=== PATIENT | female | born 1970 | race Caucasian/White ===

== ENCOUNTER 2021-04-16 21:45 | Inpatient (IN) | payer BC, SELFPAY ==
[2021-04-16 21:46] VITALS: BP 148/50; PULSE 86; RESP 17; TEMP 37.1; O2SAT 99; BMI 24.7
[2021-04-16 23:30] VITALS: BP 146/72; PULSE 87; O2SAT 98
--- NOTE | 2021-04-16 23:49 | HMH.EDNVD ---
ED Disposition Clinical Impression: Tobacco use Pancreatitis Qualifiers: Chronicity: acute Pancreatitis type: unspecified pancreatitis type Acute pancreatitis complication: no infection or necrosis Qualified Code(s): K85.90 - Acute pancreatitis without necrosis or infection, unspecified Diabetes mellitus Qualifiers: Diabetes mellitus type: type 1 Diabetes mellitus complication status: with other specified complication Qualified Code(s): E10.69 - Type 1 diabetes mellitus with other specified complication Disposition: Admitted As Inpatient Condition on Discharge: Good Instructions: DI for Acute Abdominal Pain Referrals: Provider,Referral, [Primary Care Provider] - - Critical Care Critical Care Time: No Attestation: On 04/16/21, the high probability of a clinically significant, sudden or life threatening deterioration of the following system(s) required my full and direct attention, intervention and personal management. The time I documented below is in addition to time spent performing reported procedures but includes the following listed in this critical care notation. Medical Decision Making - Medical Records Medical records reviewed: Yes: I reviewed the patient's medical records. - Carlos Inquiry Pt receiving controlled substance: No Vital Signs: 04/16/21 21:46 04/16/21 23:30 Temperature 98.8 F Temperature Source Oral Pulse Rate 87 Pulse Rate [Right] 86 Respiratory Rate 17 Blood Pressure 146/72 H Blood Pressure [Right Arm] 148/50 H Blood Pressure Mean [Right Arm] 82 Blood Pressure Source [Right Arm] Automatic Cuff 02 Sat by Pulse Oximetry 99 98 Oxygen Delivery Method Room Air - Lab Data Lab results reviewed: Yes: I reviewed the patient's lab results. Lab Results 04/16/21 23:30: WBC 18.9 H, RBC 4.10 L, Hgb 12.6, Hct 38.3, MCV 93.2, MCH 30.7, MCHC 32.9, RDW 13.2, Plt Count 147, MPV 10.8 H, Neut % (Auto) 85.1 H, Lymph % (Auto) 10.2, [place] % (Auto) 4.5, Eos % (Auto) 0.1, Baso % (Auto) 0.1, Neut # (Auto) 16.0 H, Lymph # (Auto) 1.9, [place] # (Auto) 0.9, Eos # (Auto) 0.0, Baso # (Auto) 0.0, Total Counted 100, Neutrophils % (Manual) 76, Band Neutrophils % 6.0, Lymphocytes % (Manual) 11, Monocytes % (Manual) 7, Platelet Estimate Normal, RBC Morphology Normal 04/16/21 23:30: Sodium 131 L, Potassium 5.0, Chloride 90 L, Carbon Dioxide 27, Anion Gap 19.0 H, BUN 23 H, Creatinine 0.90, Estimated Creat Clear 71, Estimated GFR 66, Est GFR ( Amer) 80, Glucose 326 H, Calcium 9.7, Total Bilirubin 0.4, AST 25, ALT 21, Alkaline Phosphatase 162 H, Troponin I < 0.01, Total Protein 8.9 H, Albumin 4.6, Globulin 4.3 H, Albumin/Globulin Ratio 1.1, Amylase 185 H, Acetone Level None detected 04/16/21 23:30: C-Reactive Protein 340.9 H, Lipase 1235 H 04/16/21 23:30: ESR 62 H 04/16/21 23:30: Lactate 1.2 04/16/21 23:30: Procalcitonin 0.459 04/16/21 23:30: SARS-CoV-2 (PCR) Not detected, Influenza A Untype (PCR) Not detected, Influenza Type B (PCR) Not detected 04/17/21 01:04: Urine Color Yellow, Urine Appearance Clear, Urine pH 6.0, Ur Specific [place] 1.020, Urine Protein Trace, Urine Glucose (UA) 2+, Urine Ketones 1+, Urine Blood Trace-i, Urine Nitrate Negative, Urine Bilirubin Negative, Urine Urobilinogen 0.2, Ur Leukocyte Esterase Negative, Urine RBC Occasional, Amorphous Sediment Trace Result diagrams: 04/16/21 23:30 04/16/21 23:30 Orders (Tests/Meds): ED MEDICATIONS Generic Name Dose Route Start Last Admin Trade Name Freq PRN Reason Stop Dose Admin Sodium Chloride 1,000 mls @ 999 mls/hr 04/16/21 23:45 04/16/21 23:57 Sod Chlor 0.9% 1000ml Bag IV 04/17/21 00:45 999 mls/hr .Q1H1M BO Administration Discontinued Medications Generic Name Dose Route Start Last Admin Trade Name Freq PRN Reason Stop Dose Admin Iopamidol 75 ml 04/17/21 00:47 04/17/21 00:48 Iopamidol-370 (76%);100ml Bottle IV 04/17/21 00:48 75 ml ONCE ONE Administration Ondansetron HCl 4 mg 04/16/21 23:54 04/16/21 23
[2021-04-17] VITALS: BP 129/67; PULSE 83; O2SAT 97
[2021-04-17 00:03] LABS: Chloride 90 mmol/L (98-107); Sodium 131 mmol/L (136-145)
[2021-04-17 00:05] LABS: Basophils % 0.1 % (0.1-2.0); Eosinophils % 0.1 % (0.1-12.0); Hematocrit 38.3 % (37.0-47.0); Hemoglobin 12.6 g/dL (12.2-16.2); Lymphocytes # 1.9 K/mm3 (0.7-4.5); Lymphocytes % 10.2 % (10-50); Mean Corpuscular HGB Conc 32.9 g/dL (31.8-35.4); Mean Corpuscular Hemoglobin 30.7 pg (27.0-31.2); Mean Corpuscular Volume 93.2 fl (81-99); Mean Platelet Volume 10.8 fl (7.4-10.4); Monocytes # 0.9 K/mm3 (0.1-1.0); Monocytes % 4.5 % (1.7-9.3); Neutrophils % 85.1 % (37.0-80.0); Platelet Count 147 K/mm3 (142-424); Red Cell Distribution Width 13.2 % (11.5-17.5); White Blood Count 18.9 K/mm3 (4.8-10.8)
[2021-04-17 00:06] LABS: Alanine Aminotransferase 21 U/L (12-78); Albumin Level 4.6 g/dl (3.5-5.0); Albumin/Globulin Ratio 1.1 (1.1-1.8); Alkaline Phosphatase 162 U/L (38-126); Amylase 185 U/L (30-110); Aspartate Amino Transferase 25 U/L (14-36); Bilirubin,Total 0.4 mg/dl (0.2-1.3); Blood Urea Nitrogen 23 mg/dl (7-17); Calcium 9.7 mg/dl (8.4-10.2); Carbon Dioxide 27 mmol/L (22.0-30.0); Creatinine Clearance Estimated 71 mL/min (50-200); Estimated Glomerular Filt Rate 66 ml/min (>60); GFR (African American) 80 ML/MIN (>60); Globulin 4.3 g/dL (1.3-3.2); Glucose 326 mg/dl (74-100); Total Protein,Serum 8.9 g/dl (6.3-8.2)
[2021-04-17 00:07] LABS: Lactic Acid 1.2 mmol/L (0.7-2.1); MANUAL DIFFERENTIAL MANUAL DIFFERENTIAL (MANUAL DIFF)
[2021-04-17 00:13] LABS: Lipase 1235 U/L (23-300)
--- NOTE | 2021-04-17 00:13 | CT_ITS ---
PROCEDURE INFORMATION: Exam: CT Abdomen And Pelvis With Contrast Exam date and time: 04/17/2021 12:13 AM Age: 50 years old Clinical indication: Abdominal pain; Localized; Right lower quadrant (rlq); Prior surgery; Surgery date: 6+ months; Surgery type: Gb hysterectomy; Additional info: Abd pain with nausea rlq pain TECHNIQUE: Imaging protocol: Computed tomography of the abdomen and pelvis with contrast. Total images: 286 Radiation optimization: All CT scans at this facility use at least one of these dose optimization techniques: automated exposure control; mA and/or kV adjustment per patient size (includes targeted exams where dose is matched to clinical indication); or iterative reconstruction. Contrast material: ISOVUE; Contrast volume: 75 ml; Contrast route: IV; COMPARISON: No relevant prior studies available. FINDINGS: Lungs: Mild bibasilar mosaic attenuation of the pulmonary parenchyma, suggesting mild small airway infectious/inflammatory process. There is subsegmental bibasilar atelectasis. Mediastinal space: A small sliding hiatal hernia is present. Liver: Suspect hepatic steatosis. Gallbladder and bile ducts: Prior cholecystectomy noted. Pancreas: Inflammation of the pancreatic tail suggests pancreatitis and is associated with a 3.6 x 3.5 x 2.9 cm rind of inflammatory fluid at the pancreatic tail. Along the anterior cranial aspect of the pancreatic tail, a more well matured 2.6 x 2.6 x 2.7 cm pseudocyst is suspected. This does appear to have an intrapancreatic extension, presumably related to prior pancreatitis though continued attention on follow-up examination is recommended. Spleen: Normal. No splenomegaly. Adrenal glands: Right adrenalectomy. Unremarkable left adrenal. Kidneys and ureters: Normal. No hydronephrosis. Stomach and bowel: Unremarkable. No obstruction. No mucosal thickening. Intestine: Findings of moderate infectious or inflammatory gastritis that could be secondary to adjacent pancreatitis. Appendix: Normal appendix. Intraperitoneal space: Unremarkable. No free air. No significant fluid collection. Vasculature: Atherosclerosis is evident. Lymph nodes: Prominent pre cardiac lymph node is nonspecific. Nonspecific prominent upper abdominal lymph nodes. Urinary bladder: Unremarkable as visualized. Reproductive: Unremarkable as visualized. Bones/joints: Unremarkable. No acute fracture. Soft tissues: Unremarkable. Other findings: Incidental pelvic phlebolith formation. IMPRESSION: 1. Inflammation of the pancreatic tail suggests pancreatitis and is associated with a 3.6 x 3.5 x 2.9 cm rind of inflammatory fluid at the pancreatic tail. Along the anterior cranial aspect of the pancreatic tail, a more well matured 2.6 x 2.6 x 2.7 cm pseudocyst is suspected. This does appear to have an intrapancreatic extension, presumably related to prior pancreatitis though continued attention on follow-up examination is recommended. No convincing abscess. Recommend correlation with amylase/lipase. 2. Normal appendix. 3. Findings of moderate infectious or inflammatory gastritis that could be secondary to adjacent pancreatitis. No perforation. 4. Mild bibasilar mosaic attenuation of the pulmonary parenchyma, suggesting mild small airway infectious/inflammatory process.
[2021-04-17 00:19] LABS: Coronavirus 19, PCR Not Detected (NotDetected); Influenza A, PCR Not Detected (NotDetected); Influenza B, PCR Not Detected (NotDetected)
[2021-04-17 00:21] LABS: Lymphocytes % 11 % (10-50); Monocytes % 7 % (2-9); Neutrophils % 76 % (42-76); Platelet Estimate Normal; RBC Morphology Normal; Total Cells Counted 100
[2021-04-17 00:22] LABS: Troponin I < 0.01 ng/ml (0.00-0.034)
[2021-04-17 00:23] LABS: Acetone, Serum (Rapid) None Detected (None Detect); Procalcitonin 0.459 ng/mL (0.0-2.0)
[2021-04-17 00:26] LABS: C-Reactive Protein 340.9 mg/L (0-4)
[2021-04-17 00:31] LABS: Erythrocyte Sedimentation Rate 62 mm/hr (0-30)
--- NOTE | 2021-04-17 00:32 | PC.NURSE ---
pt to CT
[2021-04-17 01:16] LABS: Microscopic, Urine URINE MICROSCOPIC (MICROSCOPIC)
[2021-04-17 01:22] LABS: Appearance,Urine CLEAR (Clear); Bilirubin,Urine Negative (Negative); Blood, Urine TRACE-I (Negative); Color,Urine YELLOW (Yellow); Glucose,Urine (UA) 2+ (Negative); Ketones,Urine 1+ (Negative); Leukocyte Esterase,Urine Negative (Negative); Nitrate,Urine Negative (Negative); Protein,Urine TRACE (Negative); Urobilinogen,Urine 0.2 EU/dl (0.2)
[2021-04-17 01:25] LABS: Amorphous Sediment,Urine Trace /lpf; RBC,Urine Occasional #/hpf (0-3)
[2021-04-17 02:03] VITALS: BMI 22.8
--- NOTE | 2021-04-17 03:59 | PC.NURSE ---
patient up to floor via wheelchair.
[2021-04-17 04:00] VITALS: BP 117/72; BP 132/70; PULSE 75; PULSE 85; RESP 16; RESP 17; TEMP 36.8; TEMP 36.9; O2SAT 96; O2SAT 99
[2021-04-17 05:41] LABS: POC Glucose,Bedside 261 (70-110)
[2021-04-17 07:09] LABS: Basophils % 0.2 % (0.1-2.0); Eosinophils % 0.2 % (0.1-12.0); Hematocrit 32.5 % (37.0-47.0); Lymphocytes # 1.6 K/mm3 (0.7-4.5); Lymphocytes % 12.1 % (10-50); Mean Corpuscular HGB Conc 32.1 g/dL (31.8-35.4); Mean Corpuscular Hemoglobin 30.3 pg (27.0-31.2); Mean Corpuscular Volume 94.3 fl (81-99); Mean Platelet Volume 10.6 fl (7.4-10.4); Monocytes # 0.7 K/mm3 (0.1-1.0); Monocytes % 4.9 % (1.7-9.3); Neutrophils # 11.2 K/mm3 (1.8-7.8); Neutrophils % 82.6 % (37.0-80.0); Platelet Count 110 K/mm3 (142-424); Red Blood Count 3.45 M/mm3 (4.20-5.40); Red Cell Distribution Width 13.1 % (11.5-17.5); White Blood Count 13.6 K/mm3 (4.8-10.8)
[2021-04-17 07:19] LABS: Anion Gap 12.2 mEq/L (5-15); Blood Urea Nitrogen 20 mg/dl (7-17); Calcium 8.7 mg/dl (8.4-10.2); Carbon Dioxide 27 mmol/L (22.0-30.0); Chloride 97 mmol/L (98-107); Chol/HDL Ratio 4.1 (1-3.5); Cholesterol 141 mg/dl (140-200); Creatinine Clearance Estimated 83 mL/min (50-200); Estimated Glomerular Filt Rate 88 ml/min (>60); GFR (African American) 106 ML/MIN (>60); Glucose 236 mg/dl (74-100); HDL Cholesterol 34 mg/dl (40-60); Magnesium 1.9 mg/dl (1.6-2.3); Potassium 5.2 mmoL/L (3.5-5.1); Sodium 131 mmol/L (136-145); Triglycerides 155 mg/dl (30-150); VLDL Cholesterol 31 mg/dL (0-40)
[2021-04-17 07:30] LABS: Direct LDL Cholesterol 53.37 mg/dL (100-129)
[2021-04-17 07:40] LABS: Lipase 693 U/L (23-300)
[2021-04-17 07:45] LABS: Hemoglobin 10.5 g/dL (12.2-16.2)
--- NOTE | 2021-04-17 07:55 | HMH.PHAVTE ---
[facility] Pharmacy VTE Monitoring - Patient Demographics Admission date: 04/16/21 Report Date: 04/17/21 Time: 07:55 Allergies/Adverse Reactions: Patient Allergies codeine Allergy (Verified 04/17/21 04:47) metformin Allergy (Verified 04/17/21 04:47) Height: 1.57 m Weight: 56.245 kg Patient Problems: Current Active Problems Pancreatitis (Acute) Tobacco use (Acute) Diabetes mellitus (Acute) - VTE Risk Labs: VTE Related Lab Results Hgb 10.5 g/dL (12.2-16.2) L D 04/17/21 06:55 Hct 32.5 % (37.0-47.0) L 04/17/21 06:55 Plt Count 110 K/mm3 (142-424) L D 04/17/21 06:55 BUN 20 mg/dl (7-17) H 04/17/21 06:55 Creatinine 0.70 mg/dl (0.52-1.04) D 04/17/21 06:55 Estimated Creat Clear 83 mL/min (50-200) 04/17/21 06:55 Was VTE Risk Assessment Performed: Yes VTE Score: 3 VTE Risk Level: Low Risk - Prophylaxis VTE Prophylaxis Ordered?: Yes Types of VTE Prophylaxis: TEDS Knee High Location of Applied Device: Bilateral Lower Extremeties
[2021-04-17 08:00] VITALS: BP 117/53; PULSE 81; RESP 16; TEMP 36.8; O2SAT 97
--- NOTE | 2021-04-17 08:00 | XR_ITS ---
PROCEDURE INFORMATION: Exam: XR Chest Exam date and time: 04/17/2021 8:00 AM Age: 50 years old Clinical indication: Pain; On breathing; Additional info: Chest pain TECHNIQUE: Imaging protocol: XR of the chest. Views: 2 views. COMPARISON: CT ABDOMEN PELVIS W CON 04/17/2021 12:38 AM FINDINGS: Lungs: Limited inspiration. No consolidation. Pulmonary vascular markings do not appear congested. Pleural spaces: Unremarkable. No pleural effusion. No pneumothorax. Heart/Mediastinum: Unremarkable. No cardiomegaly. Bones/joints: Unremarkable. Organs: There are multiple clips identified within the right upper quadrant, compatible prior cholecystectomy. Clips are also identified within the right paraspinal region, related to known prior right adrenalectomy. IMPRESSION: No acute findings.
--- NOTE | 2021-04-17 10:38 | HMH.HP ---
*Admission Date: 04/16/21 *Chief complaint: abd pain *History of present illness: this pt presented to the ed with abd pain which has been progressive over the last 24 hrs with dec po intake with nausea and vomiting - no fever - no blood in vomitus and no melena - no etoh - pt with abn ct of abd/pelvis which showed acute pancreatitis and prob pseudocyst - pt admitted for ivf and surg eval and treatment [facility] History I have reviewed the patient's past medical history: Yes Medical History: Reports:: Diabetes Mellitus Type 2 Denies:: Cancer, Diabetes Mellitus Type 1, MRSA *Have you ever received a pneumonia vaccine?: No *Have you received a flu vaccine this season?: No Other Medical History: Reports: Arthritis, Fibromyalgia Other Surgeries: Yes: Cholecystectomy, Hysterectomy-Total Amputation: No Fractures: Yes (R arm fracture) - *Social History Smoking Status: Current every day smoker Tobacco Type: cigarettes # Packs/Day (cigarettes): 1 Alcohol Intake: never *Occupational Status:: employed *Travel in the last 8 weeks: None Family Hx:: Anemia, Cancer, Coronary Artery Disease, Diabetes, Heart Attack, Hyperlipidemia, Hypertension, Stroke, Alcoholism Review of Systems - Review of Systems Review of systems:: pertinent systems reviewed and negative unless documented below - Constitutional Denies fever(s) - Eyes Denies blurry vision - ENT Denies dizziness - *Cardiovascular Denies chest pain - *Respiratory Denies cough - *Gastrointestinal Reports abdominal pain, Reports nausea, Reports vomiting, Denies vomiting blood, Denies black, tarry stools - *Genitourinary Denies pelvic pain - *Musculoskeletal Denies joint pain - Integumentary/Breasts Denies rash - *Neurologic Denies localized weakness, Denies seizure-like activity - Psychiatric Denies anxiety Meds Home Medications Medication Instructions Recorded Confirmed Type Atorvastatin Calcium [Lipitor 40mg 40 mg PO HS 04/17/21 04/17/21 History Tab] Ergocalciferol (Vitamin D2) 50,000 units PO WEEKLY 04/17/21 04/17/21 History [Drisdol 50,000 units (1.25mg) capsule] Escitalopram Oxalate [Lexapro] 10 mg PO DAILY 04/17/21 04/17/21 History Insulin Glargine,Hum.rec.anlog 15 units SQ DAILY 04/17/21 04/17/21 History [Torahul Duarte] Insulin Lispro [HumaLOG 100 See Protocol SQ ACHS 04/17/21 04/17/21 History units/mL 3mL vial (SSI)] Allergies Allergy/AdvReac Type Severity Reaction Status Date / Time codeine Allergy Verified 04/17/21 04:47 metformin Allergy Verified 04/17/21 04:47 Exam Vital signs and Labs for Last 24 Hours: Temp Pulse Resp BP Pulse Ox 98.3 F 81 16 117/53 L 97 04/17/21 08:00 04/17/21 08:00 04/17/21 08:00 04/17/21 08:00 04/17/21 08:00 Laboratory Results - last 24 hr 04/16/21 23:30: WBC 18.9 H, RBC 4.10 L, Hgb 12.6, Hct 38.3, MCV 93.2, MCH 30.7, MCHC 32.9, RDW 13.2, Plt Count 147, MPV 10.8 H, Neut % (Auto) 85.1 H, Lymph % (Auto) 10.2, [place] % (Auto) 4.5, Eos % (Auto) 0.1, Baso % (Auto) 0.1, Neut # (Auto) 16.0 H, Lymph # (Auto) 1.9, [place] # (Auto) 0.9, Eos # (Auto) 0.0, Baso # (Auto) 0.0, Total Counted 100, Neutrophils % (Manual) 76, Band Neutrophils % 6.0, Lymphocytes % (Manual) 11, Monocytes % (Manual) 7, Platelet Estimate Normal, RBC Morphology Normal 04/16/21 23:30: Sodium 131 L, Potassium 5.0, Chloride 90 L, Carbon Dioxide 27, Anion Gap 19.0 H, BUN 23 H, Creatinine 0.90, Estimated Creat Clear 71, Estimated GFR 66, Est GFR ( Amer) 80, Glucose 326 H, Calcium 9.7, Total Bilirubin 0.4, AST 25, ALT 21, Alkaline Phosphatase 162 H, Troponin I < 0.01, Total Protein 8.9 H, Albumin 4.6, Globulin 4.3 H, Albumin/Globulin Ratio 1.1, Amylase 185 H, Acetone Level None detected 04/16/21 23:30: C-Reactive Protein 340.9 H, Lipase 1235 H 04/16/21 23:30: ESR 62 H 04/16/21 23:30: Lactate 1.2 04/16/21 23:30: Procalcitonin 0.459 04/16/21 23:30: SARS-CoV-2 (PCR) Not detected, Influenza A Untype (PCR) Not detected, In
[2021-04-17 11:21] LABS: POC Glucose,Bedside 235 (70-110)
--- NOTE | 2021-04-17 15:45 | HMH.PHAINT ---
MEDICATION RECONCILIATION COMPLETED ON PATIENT USING EXTERNAL FILL HISTORY FROM PHARMACY AND [place] REPORT. -LUIS A JUAREZD
[2021-04-17 15:47] VITALS: BP 132/73; PULSE 83; RESP 16; TEMP 36.8; O2SAT 96
[2021-04-17 16:21] LABS: POC Glucose,Bedside 291 (70-110)
--- NOTE | 2021-04-17 17:03 | PC.NURSE ---
Pt has been pleasant and cooperative this shift. A&O X4. Pt has had frequent complaints of pain and has been medicated with Dilaudid per MAR. Pt is on room air with sats. >90%. Lungs CTA. No edema noted. Skin is C/D/I. Pt ambulates independently to/from the bathroom and throughout the room. Pt has also sat up in the recliner for a few hours today. Urine is clear and yellow. No BM thus far this shift. Pt is tolerating a clear liquid diet fairly at this time. FSBS results have been 235 and 291. 18 G peripheral IV in the RT AC is patent and infusing NS @ 100 ML/HR. VSS. Call light within reach. Will continue to monitor.
[2021-04-17 20:00] VITALS: BP 132/67; PULSE 87; RESP 18; TEMP 37.2; O2SAT 97
[2021-04-17 21:01] LABS: POC Glucose,Bedside 249 (70-110)
--- NOTE | 2021-04-18 03:37 | PC.NURSE ---
Shift summary. Pt has had multiple c/o pain in abdomen t/o shift rating pain as 10/10 and nausea. Pt was administered Dilaudid and Zofran per SEP. Pt has not rested t/o shift thus far. Tolerating RA well with sats above 96%. NS infusing @100ml/hr. Pt able to ambulate to bathroom independently. Pt currently sitting up in bed watching tv. CB in reach. Will continue to monitor.
[2021-04-18 04:00] VITALS: BP 142/71; PULSE 92; RESP 18; TEMP 36.7; O2SAT 94
[2021-04-18 06:01] LABS: POC Glucose,Bedside 242 (70-110)
[2021-04-18 07:36] VITALS: BP 151/79; PULSE 84; RESP 18; TEMP 36.9; O2SAT 93
[2021-04-18 07:55] LABS: Basophils % 0.1 % (0.1-2.0); Eosinophils % 0.1 % (0.1-12.0); Hematocrit 32.6 % (37.0-47.0); Hemoglobin 10.5 g/dL (12.2-16.2); Lymphocytes # 1.6 K/mm3 (0.7-4.5); Mean Corpuscular HGB Conc 32.1 g/dL (31.8-35.4); Mean Corpuscular Hemoglobin 30.3 pg (27.0-31.2); Mean Corpuscular Volume 94.2 fl (81-99); Mean Platelet Volume 10.9 fl (7.4-10.4); Monocytes # 0.6 K/mm3 (0.1-1.0); Monocytes % 5.1 % (1.7-9.3); Neutrophils # 10.2 K/mm3 (1.8-7.8); Neutrophils % 81.6 % (37.0-80.0); Platelet Count 105 K/mm3 (142-424); Red Blood Count 3.46 M/mm3 (4.20-5.40); White Blood Count 12.5 K/mm3 (4.8-10.8)
[2021-04-18 08:04] LABS: Amylase 135 U/L (30-110); Anion Gap 15.7 mEq/L (5-15); Blood Urea Nitrogen 9 mg/dl (7-17); Calcium 9.2 mg/dl (8.4-10.2); Carbon Dioxide 25 mmol/L (22.0-30.0); Chloride 94 mmol/L (98-107); Cholesterol 156 mg/dl (140-200); Creatinine Clearance Estimated 97 mL/min (50-200); Estimated Glomerular Filt Rate 105 ml/min (>60); GFR (African American) 127 ML/MIN (>60); Glucose 223 mg/dl (74-100); HDL Cholesterol 31 mg/dl (40-60); Lipase 316 U/L (23-300); Potassium 4.7 mmoL/L (3.5-5.1); Sodium 130 mmol/L (136-145); Triglycerides 160 mg/dl (30-150); VLDL Cholesterol 32 mg/dL (0-40)
[2021-04-18 08:15] LABS: Direct LDL Cholesterol 71.32 mg/dL (100-129)
[2021-04-18 11:49] LABS: POC Glucose,Bedside 277 (70-110)
--- NOTE | 2021-04-18 14:06 | HMH.GSPN ---
Subjective Narrative: Patient is a 50-year-old female from [place], [place] recently hospitalized with apparent hypoglycemia. She was undergoing thorough work-up by endocrinology for possible insulinoma. She had endoscopic biopsy of the pancreas. She was doing well until recently she developed lower abdominal pain. This localized to the epigastrium. She presented here to the emergency department where she was seen and evaluated. She was found to have leukocytosis and elevation of pancreatic enzymes. She underwent CT scan. This revealed findings of the following: Inflammation of the pancreatic tail suggests pancreatitis and is associated with a 3.6 x 3.5 x 2.9 cm rind of inflammatory fluid at the pancreatic tail. Along the anterior cranial aspect of the pancreatic tail, a more well matured 2.6 x 2.6 x 2.7 cm pseudocyst is suspected. This does appear to have an intrapancreatic extension, presumably related to prior pancreatitis though continued attention on follow-up examination is recommended. No convincing abscess. She was seen by general surgery on-call this weekend. Of note, the patient has had prior cholecystectomy. She is on a clear liquid diet. She still does have some pain. Pancreatic enzymes have improved. Progress Note: A&P (1) Pancreatitis Status: Acute (2) Tobacco use Status: Acute (3) Diabetes mellitus Status: Acute Assessment and Plan for All Diagnoses:: No surgical intervention needed at this time. May benefit from gastroenterology input. Exam Vital signs and Labs for Last 24 Hours: Temp Pulse Resp BP Pulse Ox 98.4 F 84 18 151/79 H 93 L 04/18/21 07:36 04/18/21 07:36 04/18/21 07:36 04/18/21 07:36 04/18/21 07:36 Laboratory Results - last 24 hr 04/17/21 16:05: POC Glucose 291 H 04/17/21 20:54: POC Glucose 249 H 04/18/21 05:55: POC Glucose 242 H 04/18/21 07:14: WBC 12.5 H, RBC 3.46 L, Hgb 10.5 L, Hct 32.6 L, MCV 94.2, MCH 30.3, MCHC 32.1, RDW 13.0, Plt Count 105 L, MPV 10.9 H, Neut % (Auto) 81.6 H, Lymph % (Auto) 13.0, [place] % (Auto) 5.1, Eos % (Auto) 0.1, Baso % (Auto) 0.1, Neut # (Auto) 10.2 H, Lymph # (Auto) 1.6, [place] # (Auto) 0.6, Eos # (Auto) 0.0, Baso # (Auto) 0.0 04/18/21 07:14: Sodium 130 L, Potassium 4.7, Chloride 94 L, Carbon Dioxide 25, Anion Gap 15.7 H, BUN 9 D, Creatinine 0.60, Estimated Creat Clear 97, Estimated GFR 105, Est GFR ( Amer) 127, Glucose 223 H, Calcium 9.2, Triglycerides 160 H, Cholesterol 156, LDL Cholesterol Direct 71.32 L, VLDL Cholesterol 32, HDL Cholesterol 31 L, Cholesterol/HDL Ratio 5.0 H, Amylase 135 H, Lipase 316 H 04/18/21 11:35: POC Glucose 277 H I & O for Last 24 hours: Intake & Output 04/16/21 04/17/21 04/18/21 04/19/21 11:59 11:59 11:59 11:59 Intake Total 1999 1220 / 1220 240 / 240 Balance 1999 1220 / 1220 240 / 240 Weight 124 lb - *Routine Abdominal Exam Present: soft Comments: Tenderness in the midepigastrium without peritonitis
--- NOTE | 2021-04-18 14:43 | HMH.DCSUM ---
General - General Admission date:: 04/17/21 Discharge date: 04/18/21 HPI HPI: this pt presented to the ed with abd pain which has been progressive over the last 24 hrs with dec po intake with nausea and vomiting - no fever - no blood in vomitus and no melena - no etoh - pt with abn ct of abd/pelvis which showed acute pancreatitis and prob pseudocyst - pt admitted for ivf and surg eval and treatment Hospital Course Hospital Course: pt still with abd pain but improved and tone liquid diet - labs have improved and pt has seen surg - pt has pancreas eval in recent past and has gastro to follow up with- atient is a 50-year-old female from [place], [place] recently hospitalized with apparent hypoglycemia. She was undergoing thorough work-up by endocrinology for possible insulinoma. She had endoscopic biopsy of the pancreas. She was doing well until recently she developed lower abdominal pain. This localized to the epigastrium. She presented here to the emergency department where she was seen and evaluated. She was found to have leukocytosis and elevation of pancreatic enzymes. She underwent CT scan. This revealed findings of the following: Inflammation of the pancreatic tail suggests pancreatitis and is associated with a 3.6 x 3.5 x 2.9 cm rind of inflammatory fluid at the pancreatic tail. Along the anterior cranial aspect of the pancreatic tail, a more well matured 2.6 x 2.6 x 2.7 cm pseudocyst is suspected. This does appear to have an intrapancreatic extension, presumably related to prior pancreatitis though continued attention on follow-up examination is recommended. No convincing abscess. She was seen by general surgery on-call this weekend. Of note, the patient has had prior cholecystectomy. She is on a clear liquid diet. She still does have some pain. Pancreatic enzymes have improved. will d/c pt and maintain slow increase in diet and needs to see her pcp and gastro kermit for follow up Objective Vital signs: Temp Pulse Resp BP Pulse Ox 98.4 F 84 18 151/79 H 93 L 04/18/21 07:36 04/18/21 07:36 04/18/21 07:36 04/18/21 07:36 04/18/21 07:36 - *Routine HEENT Exam Head: Present: normocephalic Eye: Present: EOMI, PERRL ENT: Present: mucous membranes dry - *Routine Neck Exam Present: supple - *Routine Respiratory Exam Present: CTA bilaterally - *Routine Cardiovascular Exam Present: RRR. Absent: murmur - *Routine Abdominal Exam Present: soft, tenderness. Absent: rebound, guarding, firm, rigid - *Routine Extremities Exam Present: edema - *Routine Skin Exam Present: intact - *Routine Neurological Exam Present: alert, oriented X3, CN II-XII intact - Routine Psychiatric Exam Present: normal affect Results Labs on day of discharge: Labs from last 24 hours 04/18/21 04/18/21 04/18/21 11:35 07:14 07:14 WBC 12.5 H RBC 3.46 L Hgb 10.5 L Hct 32.6 L MCV 94.2 MCH 30.3 MCHC 32.1 RDW 13.0 Plt Count 105 L MPV 10.9 H Neut % (Auto) 81.6 H Lymph % (Auto) 13.0 [place] % (Auto) 5.1 Eos % (Auto) 0.1 Baso % (Auto) 0.1 Neut # (Auto) 10.2 H Lymph # (Auto) 1.6 [place] # (Auto) 0.6 Eos # (Auto) 0.0 Baso # (Auto) 0.0 Sodium 130 L Potassium 4.7 Chloride 94 L Carbon Dioxide 25 Anion Gap 15.7 H BUN 9 D Creatinine 0.60 Estimated Creat Clear 97 Estimated GFR 105 Est GFR ( Amer) 127 Glucose 223 H POC Glucose 277 H Calcium 9.2 Triglycerides 160 H Cholesterol 156 LDL Cholesterol Direct 71.32 L VLDL Cholesterol 32 HDL Cholesterol 31 L Cholesterol/HDL Ratio 5.0 H Amylase 135 H Lipase 316 H 04/18/21 04/17/21 04/17/21 05:55 20:54 16:05 WBC RBC Hgb Hct MCV MCH MCHC RDW Plt Count MPV Neut % (Auto) Lymph % (Auto) [place] % (Auto) Eos % (Auto) Baso % (Auto) Neut # (Auto) Lymph # (Auto) [place] # (Auto
--- NOTE | 2021-04-18 15:17 | HMH.PHAINT ---
DISCHARGE MEDICATION COUNSELING COMPLETE. DISCUSSED THERE WERE NO CHANGES MADE TO HOME MEDICATIONS. PATIENT ASKED ABOUT BEING SENT HOME ON A PAIN MED AND EXPRESSED HOW SHE WAS ONLY ON HER INSULIN WHILE INPATIENT. I EXPLAINED THAT THE PAIN MEDICINE WOULD HAVE TO BE DISCUSSED WITH HER
[2021-04-18 15:52] VITALS: BP 148/83; PULSE 78; RESP 16; TEMP 36.8; O2SAT 94
--- NOTE | 2021-04-18 16:27 | PC.NURSE ---
1613 Discharge education provided, questions encouraged and answered.
--- NOTE | 2021-05-02 12:54 | HMH.GSCON ---
*Admission Date: 04/16/21 *Reason for consult:: Pancreatitis. *History of present illness: Ms. Dsouza is a 50-year-old female admitted to [facility] for evaluation progressive abdominal pain; epigastric. Secondary onset of nausea and vomiting. Subsequently admitted for CT findings demonstrating acute pancreatitis with possible pseudocyst formation. Surgical consultation requested. Patient has a longstanding history epigastric abdominal pain attributed to chronic pancreatitis. Extensive workup has been completed in [place], [place] for possible insulinoma. Diagnosis has not been concluded, although previous episodes of hypoglycemia with unknown etiology have been demonstrated and patient has had history of acute/chronic pancreatitis. Currently doing well. Mild nausea. Slightly improved with initiation of IV fluids. Review of Systems - Review of Systems Review of systems:: pertinent systems reviewed and negative unless documented below - *Neurologic Denies dizziness, Denies localized weakness, Denies seizure-like activity [facility] History Medical History: Reports:: Diabetes Mellitus Type 2 Denies:: Cancer, Diabetes Mellitus Type 1, MRSA *Have you ever received a pneumonia vaccine?: No *Have you received a flu vaccine this season?: No Other Medical History: Reports: Arthritis, Fibromyalgia Other Surgeries: Yes: Cholecystectomy, Hysterectomy-Total Amputation: No Fractures: Yes (R arm fracture) - *Social History Smoking Status: Current every day smoker Tobacco Type: cigarettes # Packs/Day (cigarettes): 1 Alcohol Intake: never *Occupational Status:: employed *Travel in the last 8 weeks: None Family Hx:: Anemia, Cancer, Coronary Artery Disease, Diabetes, Heart Attack, Hyperlipidemia, Hypertension, Stroke, Alcoholism Meds Home Medications Medication Instructions Recorded Confirmed Type Atorvastatin Calcium [Lipitor 40mg 40 mg PO DAILY 04/17/21 04/17/21 History Tab] Ergocalciferol (Vitamin D2) 50,000 units PO WEEKLY 04/17/21 04/17/21 History [Drisdol 50,000 units (1.25mg) capsule] Escitalopram Oxalate [Lexapro] 10 mg PO DAILY 04/17/21 04/17/21 History Fluconazole [Diflucan 150mg tab] 150 mg PO DAILY 04/17/21 04/17/21 History Gabapentin [Gabapentin 400mg Cap] 400 mg PO TID 04/17/21 04/17/21 History Insulin Glargine,Hum.rec.anlog 50 units SQ BID 04/17/21 04/17/21 History [Westrahul Duarte] Insulin Lispro [HumaLOG 100 0 unit SQ ACHS 04/17/21 04/17/21 History units/mL 3mL vial (SSI)] Omeprazole [Omeprazole 40mg 40 mg PO DAILY 04/17/21 04/17/21 History Capsule] hydrocodone 5 mg-acetaminophen 325 1 tab PO TID #9 tab 04/18/21 Rx mg tablet Allergies Allergy/AdvReac Type Severity Reaction Status Date / Time codeine Allergy Verified 04/17/21 04:47 metformin Allergy Verified 04/17/21 04:47 Exam Vital signs and Labs for Last 24 Hours: Temp Pulse Resp BP Pulse Ox 98.2 F 78 16 148/83 H 94 L 04/18/21 15:52 04/18/21 15:52 04/18/21 15:52 04/18/21 15:52 04/18/21 15:52 - Constitutional no acute distress - *Routine Respiratory Exam Present: CTA bilaterally - *Routine Cardiovascular Exam Present: RRR - *Routine Abdominal Exam Present: soft, normoactive bowel sounds, tenderness Comments: Mild epigastric and right upper quadrant tenderness. No focal peritonitis. Results - Labs 04/18/21 07:14 04/18/21 07:14 - Imaging CT scan - abdomen: report reviewed, image reviewed CT scan - pelvis: report reviewed, image reviewed Assessment and Plan (1) Pancreatitis Status: Acute Qualifiers: Chronicity: acute Pancreatitis type: unspecified pancreatitis type Acute pancreatitis complication: no infection or necrosis Qualified Code(s): K85.90 - Acute pancreatitis without necrosis or infection, unspecified Category: Medical Code(s): K85.90 - Acute pancreatitis without necrosis or infection, unspecified (2) Tobacco use Status: A
== END 2021-04-18 17:00 | disposition home or self-care (01) | DRG 439 ==
LOC: ER 04-17 01:48 → 2ND 04-17 02:02
PROVIDERS: Nurse Practitioner Family; Admitting Provider Emergency Medicine; Emergency Provider Emergency Medicine; Visit Provider Emergency Medicine
DX: K85.90 Acute pancreatitis without necrosis or infection, unspecified (principal); K86.3 Pseudocyst of pancreas; Z20.822 Contact with and (suspected) exposure to COVID-19; E11.9 Type 2 diabetes mellitus without complications; Z79.4 Long term (current) use of insulin; F17.210 Nicotine dependence, cigarettes, uncomplicated
CPT/HCPCS: 36415; 71046; 74177; 80048; 80053; 80061; 81001; 82009; 82150; 82962; 83605; 83690; 83735; 84145; 84484; 85007; 85025; 85651; 86140; 96365; 96366; 96375; 99284; C9803; J2405; Q9967; U0003; U0005